=== PATIENT | female | born 2000 | race Caucasian/White ===

== ENCOUNTER 2025-03-09 01:44 | Emergency (ER) | payer OTHER ==
[~2025-03-09] VITALS: Ht 170.2 cm; Wt 62.9 kg
[2025-03-09 01:47] VITALS: PULSE 107; RESP 16; O2SAT 97
[2025-03-09 01:48] VITALS: BP 114/77; TEMP 36.9; O2SAT 98
[2025-03-09] MEDS ORDERED: LIDOCAINE HCL 1% 20ML VIAL INFIL ONE (04:15)
[2025-03-09] MEDS ORDERED: TETANUS, DIPHTHERIA, PERTUSSIS VAC/PF 0.5ML (>10YR OLD) IM ONE (04:15)
[2025-03-09] MEDS ORDERED: NAPR-1176 MT (05:12)
== END 2025-03-09 05:41 | disposition home or self-care (01) ==
LOC: ER 01:44
DX: S01.112A Laceration without foreign body of left eyelid and periocular area, initial encounter (principal); W01.0XXA Fall on same level from slipping, tripping and stumbling without subsequent striking against object, initial encounter; Y93.89 Activity, other specified; Y92.89 Other specified places as the place of occurrence of the external cause; Y99.8 Other external cause status
CPT/HCPCS: 12013; 99282; Z7610